=== PATIENT | female | born 1990 | race Caucasian/White ===

== ENCOUNTER 2018-08-05 11:56 | Emergency (ER) | payer OTHER ==
--- NOTE | 2018-08-05 12:24 | EDPHY ---
H & P Time Seen by Provider: 08/05/18 12:18 HPI/ROS: CHIEF COMPLAINT: Left calf pain HISTORY OF PRESENT ILLNESS: The patient is a 27-year-old female who comes to the emergency department complaining of left calf pain and cramping over last 2 days since she flew here on an airplane. She does have a history of DVT several years ago in the setting of an ankle sprain and control and travel. She took blood thinners for 3 months and has not since. She denies chest pain or shortness of breath. No edema or swelling. No erythema. No tingling numbness or weakness. No back pain. She denies risk of currently. She states that it feels like her calf is tight in needs to be stretched. Severity: Moderate Modifying factors: None REVIEW OF SYSTEMS: Constitutional: denies: chills, fever, recent illness, recent injury EENTM: denies: blurred vision, double vision, nose congestion Respiratory: denies: cough, shortness of breath Cardiac: denies: chest pain, irregular heart rate, lightheadedness, palpitations Gastrointestinal/Abdominal: denies: abdominal pain, diarrhea, nausea, vomiting, blood streaked stools Genitourinary: denies: dysuria, frequency, hematuria, pain Musculoskeletal: See HPI Skin: denies: lesions, rash, jaundice, bruising Neurological: denies: headache, numbness, paresthesia, tingling, dizziness, weakness Hematologic/Lymphatic: denies: blood clots, easy bleeding, easy bruising Immunologic/allergic: denies: HIV/AIDS, transplant 10 systems reviewed and negative except as noted EXAM: GENERAL: Well-appearing, well-nourished and in no acute distress. HEAD: Atraumatic, normocephalic. EYES: Pupils equal round and reactive to light, extraocular movements intact, sclera anicteric, conjunctiva are normal. ENT: TMs normal, nares patent, oropharynx clear without exudates. Moist mucous membranes. NECK: Normal range of motion, supple without lymphadenopathy or JVD. LUNGS: Breath sounds clear to auscultation bilaterally and equal. No wheezes rales or rhonchi. HEART: Regular rate and rhythm without murmurs, rubs or gallops. ABDOMEN: Soft, nontender, normoactive bowel sounds. No guarding, no rebound. No masses appreciated. BACK: No CVA tenderness, no spinal tenderness, step-offs or deformities EXTREMITIES: Left calf pain, no tenderness, no swelling. Negative Homans. Normal pulses and sensation distally. NEUROLOGICAL: Cranial nerves II through XII grossly intact. Normal speech, normal gait. 5/5 strength, normal movement in all extremities, normal sensation , normal reflexes PSYCH: Normal mood, normal affect. SKIN: Warm, dry, normal turgor, no visible rashes or lesions. Source: Patient, Family Exam Limitations: No limitations - Personal History Tetanus Vaccine Date: 12/2013 - Medical/Surgical History Hx Asthma: No Hx Chronic Respiratory Disease: No Hx Diabetes: No Hx Cardiac Disease: No Hx Renal Disease: No Hx Cirrhosis: No Hx Alcoholism: No Hx HIV/AIDS: No Hx Splenectomy or Spleen Trauma: No Other PMH: ORTHO FRACTURES - Family History Significant Family History: No pertinent family hx - Social History Smoking Status: Never smoked Alcohol Use: Sober Drug Use: None Constitutional: Initial Vital Signs Temperature (C) 36.5 C 08/05/18 12:24 Heart Rate 49 L 08/05/18 12:24 Respiratory Rate 18 08/05/18 12:24 Blood Pressure 92/65 L 08/05/18 12:24 O2 Sat (%) 98 08/05/18 12:24 O2 Delivery Mode Room Air Allergies/Adverse Reactions: No Known Allergies Allergy (Unverified 03/02/14 19:14) Home Medications: Medication Instructions Recorded Cephalexin [Keflex (*)] 500 mg PO Q8 03/03/14 Enoxaparin [Lovenox 80 MG (*)] 70 mg SC BID@1100,2300 #14 syr 03/03/14 Hydrocodone/Acetaminophen [[place] 1 tab PO Q4H PRN 03/03/14 5/325 (*)] Warfarin Sodium [Coumadin 5MG (*)] 5 mg PO DAILY16 #30 tab 03/03/14 Medical Decision Making - Diagnostics Imaging Results: Imaging Impressions Extremity Venous Study 08/05/18 12:19 Impression: Negative. No deep venous thrombosis. Findings discussed with Emergency Department physician, ANGIE OLSON at 08/05 13:08. Imaging: Discussed imaging studies w/ banquet server on call Radiologist ED Course/Re-evaluation: 1:20 p.m. We discussed the ultrasound results. Mom and patient are reassured and eager to go home. We discussed indications for returning. Differential Diagnosis: Partial list of the Differential diagnosis considered include but were not limited to; DVT, muscle strain, cramping and although unlikely based on the history and physical exam, I also considered infection, hematoma, fracture. I discussed these differential diagnoses and the plan with the patient as well as the usual and expected course. The patient understands that the diagnosis is provisional and that in medicine we are not always correct and that further workup is often warranted. Usual and customary warnings were given. All of the patient's questions were answered. The patient was instructed to return to the emergency department should the symptoms at all worsen or return, otherwise to followup with the physician as we discussed. Departure - Departure Disposition: Home, Routine, Self-Care Clinical Impression: Muscle cramping Condition: Fair Instructions: Leg Cramps (ED) Referrals: NONE *PRIMARY CARE P,. [Primary Care Provider] - As per Instructions
[2018-08-05 13:36] VITALS: BP 95/56
== END 2018-08-05 13:36 | disposition home or self-care (01) ==
LOC: CED 11:56
DX: R25.2 Cramp and spasm (principal)
CPT/HCPCS: 93971-PO; 99284-ER